=== PATIENT | female | born 2000 | race Caucasian/White ===

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

== ENCOUNTER → 2023-06-15 | Outpatient (CLI) | payer BC, OTHER | LOC: COL.RAD 14:09 | DX: N80.9 Endometriosis, unspecified (principal) ==

== ENCOUNTER 2023-10-14 16:05 | Emergency (ER) | payer BC, OTHER ==
[~2023-10-14] VITALS: Ht 170.2 cm; Wt 68.2 kg
[2023-10-14 16:10] VITALS: TEMP 98.3
[2023-10-14] MEDS ORDERED: Morphine 4 MG/ML VIAL IV ONE (16:45)
[2023-10-14] MEDS ORDERED: Ondansetron 4 MG/2 ML VIAL IV ONE (16:45)
[2023-10-14] MEDS ORDERED: Ketorolac 30 MG/ML VIAL IV ONE (16:45)
[2023-10-14] MEDS ORDERED: NS 1,000 ML IV ONE (16:45)
[2023-10-14 17:09] LABS: BASO % 0.2 % (0.0-2.0); EOS # 0.1 K/mm3 (0.0-0.7); GRAN # 7.2 K/mm3 (1.4-6.5); GRAN % 69.8 % (42.2-75.2); HEMATOCRIT 39.5 % (37.0-47.0); HEMOGLOBIN 13.8 g/dl (12.5-16.0); LYMPH # 2.4 K/mm3 (1.2-3.4); LYMPH % 22.8 % (20.0-51.0); MEAN CELL VOLUME 86 fl (80.0-100.0); MEAN CORPUSCULAR HEMOGLOBIN 30 pg (27-31); MEAN CORPUSCULAR HGB CONC 35 g/dl (33.0-37.0); MEAN PLATELET VOLUME 11.5 fl (7.4-10.4); MONO # 0.6 K/mm3 (0.1-0.6); MONO % 5.9 % (1.7-9.3); PLATELET COUNT 247 K/mm3 (130-400); RED BLOOD COUNT 4.62 M/mm3 (4.10-5.30)
[2023-10-14 17:16] LABS: PH 6.5 (5.0-8.5); URINE APPEARANCE CLEAR (CLEAR/HAZY); URINE BLOOD TRACE (NEGATIVE); URINE COLOR YELLOW (YELLOW); URINE GLUCOSE NEGATIVE (NEGATIVE); URINE KETONE NEGATIVE (NEGATIVE); URINE NITRATE NEGATIVE (NEGATIVE); URINE PROTEIN(semi-quant) NEGATIVE (NEGATIVE); URINE UROBILINOGEN 0.2 E.U/dL (0.2-1.0)
[2023-10-14 17:41] LABS: COLLECTION METHOD CLEAN CATCH
[2023-10-14 17:42] LABS: MUCOUS PRESENT (NOT PRESENT); URINE BACTERIA RARE /hpf (NONE SEEN)
[2023-10-14] MEDS ORDERED: NORCO 325 MG-51 TAB PO (18:07)
[2023-10-14 18:20] VITALS: BP 115/73; PULSE 82
== END 2023-10-14 18:20 | disposition home or self-care (01) ==
LOC: COL.ER 16:05
PROVIDERS: Physician Assistant
DX: R10.2 Pelvic and perineal pain (principal); Z87.42 Personal history of other diseases of the female genital tract
CPT/HCPCS: J1885; J2270; J2405; J7030